=== PATIENT | female | born 1950 | race Caucasian/White ===

== ENCOUNTER 2025-03-10 10:06 | Outpatient (CLI) | payer BC, MEDICARE ==
[~2025-03-10] VITALS: Ht 162.6 cm; Wt 81.6 kg
[2025-03-10 10:38] LABS: TOTAL HEMOGLOBIN 13.3 G/dl (12.0-16.0)
[2025-03-10] MEDS: albuterol 2.5 MG/3 ML nebule NEB ONE (11:22)
[2025-03-10 11:26] VITALS: PULSE 61; RESP 15; O2SAT 98
[2025-03-10 11:42] VITALS: PULSE 68; RESP 15
--- NOTE | 2025-03-11 14:36 | PROCEDURE NOTE - Respiratory ---
Procedure Note-Respiratory Providers to Copies To 1: ARNOL WORTHINGTON MD Procedure Name: This is a complete pulmonary function study dated March 10, 2025. Hemoglobin measurement was done as part of the study. Spirometry measurements: The forced vital capacity is reduced. The FEV1 is in the lower range of normal. The FEV1 ratio is elevated. The flow rates are normal with the exception of minimal loss of the FEF 75% measurement. After inhaled bronchodilator terminal flow rates show minimal improvement. Lung volume measurements: The total lung capacity, residual volume, and functional residual capacity are all symmetrically reduced. This indicates a restrictive ventilatory defect. Lung diffusion measurement: The DLCO measurement is normal. It is noted that the hemoglobin measurement is normal. Airway resistance measurement: The airway resistance measurement is normal. Conclusion: This study is abnormal. 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 Restrictive ventilatory defect is frequently seen in interstitial lung disease such as interstitial pulmonary fibrosis. Clinical correlation is suggested. There may be a tiny element of obstructive ventilatory defect but it appears to be quite mild. We have no previous studies for comparison. CT chest with high-resolution could be ordered on this patient to further explore the possibility of interstitial lung disease. MITCHELL KEENE MD March 11, 2025 14:36
== END 2025-03-11 23:59 | disposition home or self-care (01) ==
LOC: RT 10:06
PROVIDERS: ATTEND Student in an Organized Health Care Education/Training Program
DX: R06.02 Shortness of breath (principal); R06.09 Other forms of dyspnea; R05.9 Cough, unspecified
CPT/HCPCS: 85018; 94060; 94727; 94729; 94760